=== PATIENT | female | born 1995 | race Caucasian/White ===

== ENCOUNTER 2020-03-11 19:08 | Emergency (ER) | payer MEDICAID ==
[2020-03-11] MEDS ORDERED: Sodium Chloride 0.9% 2.5 ML Syringe FLUSH PRN (19:22)
[2020-03-11] MEDS ORDERED: Sodium Chloride 0.9% 10 ML Syringe FLUSH PRN (19:22)
[2020-03-11] MEDS ORDERED: Sodium Chloride 0.9% 1,000 ML IV ONE ×2 (19:35→20:59)
[2020-03-11] MEDS ORDERED: LORazepam 2 MG/ML SDV IVPUSH ONE (19:38)
--- NOTE | 2020-03-11 19:55 | CR ---
Chest: Frontal view of the chest was obtained. Comparison: No previous chest imaging is available. Heart size and mediastinum are normal. Lungs are clear with no acute parenchymal change. Bony structures are grossly intact. Minimal deformity of the right clavicle is seen most likely representing old healed fracture. Impression: 1. Nothing acute is seen on frontal chest x-ray. Diagnostic code #2 Study was dictated in MDT
[2020-03-11 20:04] LABS: BLOOD UREA NITROGEN,BUN 9 mg/dL (7.0-18.0); CARBON DIOXIDE,CO2 24.2 mmol/L (21.0-32.0); CHLORIDE,CL 102 mmol/L (98-107); GLUCOSE RANDOM 119 mg/dL (74-106); POTASSIUM,K 2.7 mmol/L (3.5-5.1); SODIUM,NA 138 mmol/L (136-145)
[2020-03-11] MEDS ORDERED: Iopamidol 755 MG/ML 500 ML Multipack Bottle IVPUSH STA (20:26)
[2020-03-11] MEDS ORDERED: Ondansetron 4 MG/2 ML SDV IVPUSH ONE (20:52)
[2020-03-11] MEDS ORDERED: Ketorolac 15 MG/ML SDV IVPUSH ONE (20:52)
[2020-03-11] MEDS: Potassium Chloride 10% 20 MEQ/15 ML Soln 30 ML UD Cup PO ONE ×2 (20:59→21:24)
--- NOTE | 2020-03-11 21:02 | CT ---
INDICATION: ABD/PELVIC PAIN CT ABDOMEN AND PELVIS WITH CONTRAST TECHNIQUE: Multidetector CT imaging was performed through the abdomen and pelvis following intravenous contrast administration using 80 mL Isovue 370. Coronal and sagittal reconstructions were generated. COMPARISON: None. FINDINGS: Lower chest: Lung bases are clear. Liver: Within normal limits. Gallbladder and bile ducts: No gallbladder wall thickening or calcified gallstones. No biliary dilation identified. Pancreas: Unremarkable. Spleen: Normal. Adrenals: No nodules or masses. Kidneys, ureters, and urinary bladder: No renal masses or hydronephrosis. Mild prominence of wall thickness of the bladder may be due to lack of distention, although cystitis could be considered. Gastrointestinal tract: No evidence of small bowel obstruction. The appendix appears normal. Mild wall prominence of the ascending colon and descending colon is favored to be due to lack of distention although mild colitis is not entirely excluded. Vascular structures: Normal for age. Peritoneum: Trace free fluid in the low pelvis may be physiologic. No free air or evidence of intra-abdominal abscess. Lymph nodes: No pathologically enlarged nodes identified. Reproductive organs: No pelvic masses. Bones: Normal for age. IMPRESSION: 1. Mild urinary bladder wall prominence, possibly due to cystitis. Correlation with urinalysis is suggested. 2. Mild wall prominence of the colon is likely due to lack of distension, although mild colitis is not entirely excluded. Clinical correlation is suggested. GUILLAUME COREY MD [facility] Dictated by Duran Corey MD @ 03/11/2020 8:59:54 PM Dictated by: Duran Corey MD @ 03/11/2020 21:00:58 (Electronically Signed)
[2020-03-11] MEDS ORDERED: Potassium Chloride 20 MEQ Tab.ER PO ONE (21:24)
[2020-03-11] MEDS ORDERED: HYDROmorphone 1 MG/ML Syringe IVPUSH ONE (21:55)
--- NOTE | 2020-03-11 22:17 | EDM.PDOC ---
ED HPI GENERAL MEDICAL PROBLEM - General Chief Complaint: Abdominal Pain Stated Complaint: LOWER PELVIC PAIN Time Seen by Provider: 03/11/20 19:11 - History of Present Illness INITIAL COMMENTS - FREE TEXT/NARRATIVE: HISTORY AND PHYSICAL: History of present illness: This is a 24-year-old female who presents ER today complaining of suprapubic abdominal pain that started approximately 1 day. Patient reports no dysuria frequency urgency. Patient denies any vaginal discharge or bleeding. Patient denies any nausea vomiting or diarrhea. Patient has any recent fevers, shakes, chills, URI symptoms, sore throat, earache, rash. Patient reports that she has had tachycardia with a heart rate in the 1 20-1 50 range ever since she was 10 to 11 years old and has been evaluated by federal agent and was planning further outpatient tests before she moved to [place]. Patient reports that she has had an EKG but has never had a stress test, echocardiogram, or tilt test. Patient has never been diagnosed with pots syndrome in the past. Patient reports that her thyroid is been normal. Patient reports that she has never been told she had a pheochromocytoma or family history of pheochromocytoma. Patient reports that her blood pressure usually runs high as well. Patient reports it is not uncommon for her to have a heart rate of 140 with a systolic blood pressure of 150 and diastolic blood pressure of 90. At this time, the patient reports her main complaint is her suprapubic discomfort. Patient reports that she has had ovarian cysts in the past and this feels similar to her ovarian cyst pain. Review of systems: As per history of present illness and below otherwise all systems reviewed and negative. Past medical history: As per history of present illness and as reviewed below otherwise noncontributory. Surgical history: As per history of present illness and as reviewed below otherwise noncontributory. Social history: No reported history of drug or alcohol abuse. Family history: As per history of present illness and as reviewed below otherwise noncontributory. Physical exam: Constitutional: Patient is oriented to person, place, and time. Appears well- developed and well-nourished. No distress. HEENT: Moist mucous membranes Head: Normocephalic and atraumatic Eyes: Right eye exhibits no discharge. Left eye exhibits no discharge. No scleral icterus Neck: Normal range of motion. No tracheal deviation present. Cardiovascular: Tachycardic normal rhythm. Heart rate fluctuates between 120 bpm and 150 bpm and appears to be sinus tachycardia on the monitor. No appreciable gallops murmurs or rubs. With carotid sinus massage, no significant change in her heart was identified. Pulmonary: Effort normal, no respiratory distress. Abd: Soft, nondistended, no rebound/guarding, no psoas or obturator signs, no tenderness at Mcberney's point, no Pizarro's sign. Pt does not present with an exam that would be consistent with an acute surgical abdomen at this time. Positive tenderness palpation in the suprapubic region. Musculoskeletal: Normal range of motion Neurologic: Alert and oriented to person, place and time. Skin: [place], warm and dry. Psychiatric: Normal mood and affect. Behavior is normal. Judgment and thought content normal. Nursing note and vital signs have been reviewed Multiple repeat evaluations in the ED reveals patient is abdominal pain has improved slightly. Patient has been given Toradol 30 mg IV as well as Dilaudid 0.5 mg IV and Zofran to assist with her nausea. 9:45 PM: Abd: Soft, nondistended, no rebound/guarding, no psoas or obturator signs, no tenderness at Mcberney's point, no Pizarro's sign. Pt does not present with an exam that would be consistent with an acute surgical abdomen at this time. Minimal tenderness to palpation suprapubic region. Heart rate 115 bpm to 130 bpm. Assessment and plan: This is a 24-year-old female who presents ER today complaining of suprapubic abdominal pain. Patient reports that she has been tachycardic ever since she was 12-13 years old. Patient reports that her last physician that saw her felt her tachycardia may be related to anxiety. Patient reports she does feel anxious today but it is not clear whether or not her anxiety is related to her abdominal pain. Patient reports that her heart rate is always greater than 100 and usually runs in the 130 range. Given her abdominal discomfort, her tachycardia, hypertension, possibility of pheochromocytoma arises. We will send a serum metanephrine level. Although this is a random level, if it is within normal range it would be unlikely that she would have a pheochromocytoma since she is currently symptomatic. A CT scan of the abdomen pelvis with IV contrast will also be obtained in order to assess her abdominal discomfort as well as assess for any masses in her adrenals. Patient's labs are all within normal limits except for hypokalemia which will be treated here in the ED with potassium chloride. Patient has been given Toradol, Zofran, Dilaudid 0.5 mg IV as well as 2 L of normal saline with significant improvement in her tachycardia. But still not clear the cause of her tachycardia but it has improved with treatment of her pain. Her blood pressure is also improved on the ED. Since the serum metanephrine level is a send out, the result will not be back for approximately 1 week. Patient will be instructed to call the ER in 1 week for her metanephrine level. As far as her abdominal discomfort, the etiology of the pain is unclear. I highly suspect that this may be secondary to ovarian cyst. Patient CT scan did not reveal any concerning symptoms for ovarian torsion and her exam does not appear to be consistent with ovarian torsion either. Patient be discharged home with a prescription of ibuprofen and Ultram to assist her with her pain and instructions to follow-up with a primary care physician in order to assist her further with her chronic tachycardia as well as her abdominal pain. Reassessment at the time of disposition demonstrates that the patient is in no acute distress. The patient has remained stable throughout the entire ED visit and is without objective evidence for acute process requiring urgent intervention or hospitalization. The patient is stable for discharge, counseling is provided as documented above, discussed symptomatic treatment and specific conditions for return. I have spoken with the patient/caregive and discussed todays findings, in addition to providing specific details for the plan of care. Questions are answered and there is agreement with the plan. Definitive disposition and diagnosis as appropriate pending reevaluation and review of above. Lower abdomen Pain Score (Numeric/FACES): 6 - Related Data Allergies Allergy/AdvReac Type Severity Reaction Status Date / Time No Known Allergies Allergy Verified 03/11/20 19:29 Home Meds: Home Meds Control 1 tab PO DAILY 03/11/20 [History] Ibuprofen 600 mg PO Q6HR PRN #30 tablet 03/11/20 [Rx] Ondansetron [Zofran ODT] 4 mg PO Q6H PRN #12 tab.dis 03/11/20 [Rx] traMADol [Ultram] 50 mg PO Q6H PRN #12 tab 03/11/20 [Rx] Past Medical History HEENT History: Reports: None Cardiovascular History: Reports: None Respiratory History: Reports: None Gastrointestinal History: Reports: None Genitourinary History: Reports: None TENDERIZER TENDER History: Reports: Endometriosis Musculoskeletal History: Reports: None Neurological History: Reports: None Psychiatric History: Reports: None Endocrine/Metabolic History: Reports: None Hematologic History: Reports: None Immunologic History: Reports: None Oncologic (Cancer) History: Reports: None Dermatologic History: Reports: None - Infectious Disease History Infectious Disease History: Reports: None - Past Surgical History Head Surgeries/Procedures: Reports: None HEENT Surgical History: Reports: Adenoidectomy, Oral Surgery, Tonsillectomy Cardiovascular Surgical History: Reports: None Respiratory Surgical History: Reports: None GI Surgical History: Reports: None Female Surgical History: Reports: Other (See Below) Endocrine Surgical History: Reports: None Musculoskeletal Surgical History: Reports: None Oncologic Surgical History: Reports: None Dermatological Surgical History: Reports: None Social & Family History - Family History Family Medical History: Noncontributory - Tobacco Use Smoking Status *Q: Never Smoker Second Hand Smoke Exposure: No - Caffeine Use Caffeine Use: Reports: Coffee, Soda - Recreational Drug Use Recreational Drug Use: Yes Recreational Drug Type: Reports: Marijuana/Hashish Recreational Drug Use Frequency: Daily ED ROS GENERAL - Review of Systems Review Of Systems: Comprehensive ROS is negative, except as noted in HPI. ED EXAM, GENERAL - Physical Exam Exam: See Below EKG INTERPRETATION Comparison: NA - No Prior EKG EKG Interpretation Comments: EKG: Normal sinus tachycardia heart rate of [address]-T wave abnormalities Normal axis No evidence of ST elevation IA As interpreted by ER physician: Liza Chest Xray: Normal cardiac silhouette No infiltrates or effusions identified. No PTX No evidence of acute bony fracture. As interpreted by ER MD: Liza Course - Vital Signs Last Recorded V/S: Last Vital Signs Temp 98.1 F 03/11/20 19:26 Pulse 115 H 03/11/20 21:43 Resp 18 03/11/20 21:43 BP 145/81 H 03/11/20 21:43 Pulse Ox 99 03/11/20 21:09 - Orders/Labs/Meds Orders: Active Orders 24 hr Category Date Time Status EKG Documentation Completion [RC] STAT Care 03/11/20 19:22 Active METANEPHRINES, FRAC., PL. FREE [REF] Stat Lab 03/11/20 19:55 Received Sodium Chloride 0.9% [Saline Flush] Med 03/11/20 19:22 Active 10 ml FLUSH ASDIRECTED PRN Sodium Chloride 0.9% [Saline Flush] Med 03/11/20 19:22 Active 2.5 ml FLUSH ASDIRECTED PRN Saline Lock Insert [OM.PC] Stat Oth 03/11/20 19:22 Ordered Medication Orders Sodium Chloride (Saline Flush) 10 ml FLUSH ASDIRECTED PRN PRN Reason: Keep Vein Open Sodium Chloride (Saline Flush) 2.5 ml FLUSH ASDIRECTED PRN PRN Reason: Keep Vein Open Labs: Laboratory Tests 03/11/20 03/11/20 03/11/20 Range/Units 19:30 19:30 19:30 WBC 8.87 (4.0-11.0) K/uL RBC 4.64 (4.30-5.90) M/uL Hgb 14.0 (12.0-16.0) g/dL Hct 40.4 (36.0-46.0) % MCV 87.1 (80.0-98.0) fL MCH 30.2 (27.0-32.0) pg MCHC 34.7 (31.0-37.0) g/dL RDW Std Deviation 40.1 (28.0-62.0) fl RDW Coeff of Bret 13 (11.0-15.0) % Plt Count 241 (150-400) K/uL MPV 12.00 (7.40-12.00) fL Neut % (Auto) 48.4 (48.0-80.0) % Lymph % (Auto) 39.0 (16.0-40.0) % [place] % (Auto) 10.3 (0.0-15.0) % Eos % (Auto) 2.0 (0.0-7.0) % Baso % (Auto) 0.3 (0.0-1.5) % Neut # (Auto) 4.3 (1.4-5.7) K/uL Lymph # (Auto) 3.5 H (0.6-2.4) K/uL [place] # (Auto) 0.9 H (0.0-0.8) K/uL Eos # (Auto) 0.2 (0.0-0.7) K/uL Baso # (Auto) 0.0 (0.0-0.1) K/uL Sodium 138 (136-145) mmol/L Potassium 2.7 L (3.5-5.1) mmol/L Chloride 102 (98-107) mmol/L Carbon Dioxide 24.2 (21.0-32.0) mmol/L BUN 9 (7.0-18.0) mg/dL Creatinine 1.0 (0.6-1.0) mg/dL Est Cr Clr Drug Dosing 79.81 mL/min Estimated GFR (MDRD) > 60.0 ml/min Glucose 119 H (74-106) mg/dL Calcium 8.6 (8.5-10.1) mg/dL Magnesium 1.9 (1.8-2.4) mg/dL Total Bilirubin 0.3 (0.2-1.0) mg/dL AST 16 (15-37) IU/L ALT 16 (14-63) IU/L Alkaline Phosphatase 74 (46-116) U/L Total Protein 7.6 (6.4-8.2) g/dL Albumin 4.6 (3.4-5.0) g/dL Globulin 3.0 (2.6-4.0) g/dL Albumin/Globulin Ratio 1.5 (0.9-1.6) TSH 3rd Generation 6.13 H (0.36-3.74) uIU/mL HCG, Qual NEGATIVE (NEG) Urine Color Urine Appearance Urine pH (5.0-8.0) Ur Specific [place] (1.001-1.035) Urine Protein (NEGATIVE) mg/dL Urine Glucose (UA) (NEGATIVE) mg/dL Urine Ketones (NEGATIVE) mg/dL Urine Occult Blood (NEGATIVE) Urine Nitrite (NEGATIVE) Urine Bilirubin (NEGATIVE) Urine Urobilinogen (<2.0) EU/dL Ur Leukocyte Esterase (NEGATIVE) Urine Opiates Screen (NEGATIVE) Ur Oxycodone Screen (NEGATIVE) Urine Methadone Screen (NEGATIVE) Ur Barbiturates Screen (NEGATIVE) Ur Phencyclidine Scrn (NEGATIVE) Ur Amphetamine Screen (NEGATIVE) U Methamphetamines Scrn (NEGATIVE) U Benzodiazepines Scrn (NEGATIVE) U Cocaine Metab Screen (NEGATIVE) U Marijuana (THC) Screen (NEGATIVE) 03/11/20 03/11/20 Range/Units 19:57 19:57 WBC (4.0-11.0) K/uL RBC (4.30-5.90) M/uL Hgb (12.0-16.0) g/dL Hct (36.0-46.0) % MCV (80.0-98.0) fL MCH (27.0-32.0) pg MCHC (31.0-37.0) g/dL RDW Std Deviation (28.0-62.0) fl RDW Coeff of Bret (11.0-15.0) % Plt Count (150-400) K/uL MPV (7.40-12.00) fL Neut % (Auto) (48.0-80.0) % Lymph % (Auto) (16.0-40.0) % [place] % (Auto) (0.0-15.0) % Eos % (Auto) (0.0-7.0) % Baso % (Auto) (0.0-1.5) % Neut # (Auto) (1.4-5.7) K/uL Lymph # (Auto) (0.6-2.4) K/uL [place] # (Auto) (0.0-0.8) K/uL Eos # (Auto) (0.0-0.7) K/uL Baso # (Auto) (0.0-0.1) K/uL Sodium (136-145) mmol/L Potassium (3.5-5.1) mmol/L Chloride (98-107) mmol/L Carbon Dioxide (21.0-32.0) mmol/L BUN (7.0-18.0) mg/dL Creatinine (0.6-1.0) mg/dL Est Cr Clr Drug Dosing mL/min Estimated GFR (MDRD) ml/min Glucose (74-106) mg/dL Calcium (8.5-10.1) mg/dL Magnesium (1.8-2.4) mg/dL Total Bilirubin (0.2-1.0) mg/dL AST (15-37) IU/L ALT (14-63) IU/L Alkaline Phosphatase (46-116) U/L Total Protein (6.4-8.2) g/dL Albumin (3.4-5.0) g/dL Globulin (2.6-4.0) g/dL Albumin/Globulin Ratio (0.9-1.6) TSH 3rd Generation (0.36-3.74) uIU/mL HCG, Qual (NEG) Urine Color YELLOW Urine Appearance CLEAR Urine pH 5.5 (5.0-8.0) Ur Specific [place] 1.010 (1.001-1.035) Urine Protein NEGATIVE (NEGATIVE) mg/dL Urine Glucose (UA) NEGATIVE (NEGATIVE) mg/dL Urine Ketones NEGATIVE (NEGATIVE) mg/dL Urine Occult Blood NEGATIVE (NEGATIVE) Urine Nitrite NEGATIVE (NEGATIVE) Urine Bilirubin NEGATIVE (NEGATIVE) Urine Urobilinogen 0.2 (<2.0) EU/dL Ur Leukocyte Esterase NEGATIVE (NEGATIVE) Urine Opiates Screen NEGATIVE (NEGATIVE) Ur Oxycodone Screen NEGATIVE (NEGATIVE) Urine Methadone Screen NEGATIVE (NEGATIVE) Ur Barbiturates Screen NEGATIVE (NEGATIVE) Ur Phencyclidine Scrn NEGATIVE (NEGATIVE) Ur Amphetamine Screen NEGATIVE (NEGATIVE) U Methamphetamines Scrn NEGATIVE (NEGATIVE) U Benzodiazepines Scrn NEGATIVE (NEGATIVE) U Cocaine Metab Screen NEGATIVE (NEGATIVE) U Marijuana (THC) Screen POSITIVE (NEGATIVE) Meds: Medications Generic Name Dose Route Start Last Admin Trade Name Freq PRN Reason Stop Dose Admin Sodium Chloride 10 ml 03/11/20 19:22 Saline Flush FLUSH ASDIRECTED PRN Keep Vein Open Sodium Chloride 2.5 ml 03/11/20 19:22 Saline Flush FLUSH ASDIRECTED PRN Keep Vein Open Discontinued Medications Generic Name Dose Route Start Last Admin Trade Name Freq PRN Reason Stop Dose Admin Hydromorphone HCl 0.5 mg 03/11/20 21:55 03/11/20 22:02 Dilaudid IVPUSH 03/11/20 21:56 0.5 mg ONETIME ONE Administration Sodium Chloride 1,000 mls @ 999 mls/hr 03/11/20 19:35 03/11/20 19:44 Normal Saline IV 03/11/20 20:35 999 mls/hr .Bolus ONE Administration Sodium Chloride 1,000 mls @ 999 mls/hr 03/11/20 20:59 03/11/20 21:07 Normal Saline IV 03/11/20 21:59 999 mls/hr .Bolus ONE Administration Iopamidol 80 ml 03/11/20 20:26 03/11/20 20:32 Isovue Multipack-370 (76%) IVPUSH 03/11/20 20:27 80 ml ONETIME STA Administration Ketorolac Tromethamine 30 mg 03/11/20 20:52 03/11/20 20:59 Toradol IVPUSH 03/11/20 20:53 30 mg ONETIME ONE Administration Lorazepam 1 mg 03/11/20 19:38 03/11/20 19:43 Ativan IVPUSH 03/11/20 19:39 1 mg ONETIME ONE Administration Ondansetron HCl 4 mg 03/11/20 20:52 03/11/20 20:59 Zofran IVPUSH 03/11/20 20:53 4 mg ONETIME ONE Administration Potassium Chloride 40 meq 03/11/20 20:54 03/11/20 21:24 Potassium Chloride PO 03/11/20 20:55 Not Given ONETIME ONE Potassium Chloride 40 meq 03/11/20 21:24 03/11/20 21:41 Klor-Con M20 PO 03/11/20 21:25 40 meq ONETIME ONE Administration Departure - Departure Time of Disposition: 22:17 Disposition: Home, Self-Care 01 Condition: Good Clinical Impression: Abdominal pain, Tachycardia - Discharge Information Prescriptions: Ibuprofen 600 mg PO Q6HR PRN #30 tablet PRN Reason: Pain traMADol [Ultram] 50 mg PO Q6H PRN #12 tab PRN Reason: Pain Ondansetron [Zofran ODT] 4 mg PO Q6H PRN #12 tab.dis PRN Reason: Nausea Instructions: Sinus Tachycardia, Abdominal Pain, Adult, [id number] Referrals: PCP,None [Primary Care Provider] - Forms: ED Department Discharge Additional Instructions: The etiology of your abdominal pain is unclear although we highly suspect that it may be secondary to an ovarian cyst. You will be given a prescription for ibuprofen as well as Ultram to assist you with your pain and a prescription for Zofran to assist you with nausea. Please make an appointment to follow-up with the primary care physician for reevaluation. The etiology of your tachycardia is also unclear. There are multiple reasons for you to have chronic tachycardia that will need to be evaluated further by a federal agent. Your tachycardia appears to be a result of sinus tachycardia which is a normal heart rhythm. You do not have any evidence of a supraventricular tachycardia. Please make an appointment to see a federal agent for further evaluation. The following information is given to patients seen in the emergency department who are being discharged to home. This information is to outline your options for follow-up care. We provide all patients seen in our emergency department with a follow-up referral. The need for follow-up, as well as the timing and circumstances, are variable depending upon the specifics of your emergency department visit. If you don't have a primary care physician on staff, we will provide you with a referral. We always advise you to contact your personal physician following an emergency department visit to inform them of the circumstance of the visit and for follow-up with them and/or the need for any referrals to a consulting specialist. The emergency department will also refer you to a specialist when appropriate. This referral assures that you have the opportunity for follow-up care with a specialist. All of these measure are taken in an effort to provide you with optimal care, which includes your follow-up. Under all circumstances we always encourage you to contact your private physician who remains a resource for coordinating your care. When calling for follow-up care, please make the office aware that this follow-up is from your recent emergency room visit. If for any reason you are refused follow-up, please contact the [facility] Emergency Department at and asked to speak to the emergency department charge nurse. [facility] - Internal Medicine [address] [place] [address] [facility] [address] [place] [id number] [place] [phone] We have also sent out a test to rule out pheochromocytoma. This test needs to be sent out of the hospital and takes approximately 1 week to return. Although we should call you if the test results are abnormal, please call the emergency department after 1 week for your test results. [phone] Sepsis Event Note (ED) - Evaluation Sepsis Screening Result: No Definite Risk - Focused Exam Vital Signs: Vital Signs Temp Pulse Resp BP Pulse Ox 03/11/20 21:43 115 H 18 145/81 H 03/11/20 21:09 94 155/82 H 99 03/11/20 20:50 136 H 151/89 H 100 03/11/20 19:40 133 H 18 165/84 H 100 03/11/20 19:26 98.1 F 169 H 18 153/97 H 99 - My Orders Last 24 Hours: My Active Orders 03/11/20 19:55 METANEPHRINES, FRAC., PL. FREE [REF] Stat - Assessment/Plan Last 24 Hours: My Active Orders 03/11/20 19:55 METANEPHRINES, FRAC., PL. FREE [REF] Stat
== END 2020-03-11 22:37 | disposition home or self-care (01) ==
LOC: MW.ED 19:08
DX: R10.30 Lower abdominal pain, unspecified (principal); R00.0 Tachycardia, unspecified; Z90.89 Acquired absence of other organs
CPT/HCPCS: 36415; 71045; 74177; 80053; 80305; 81003; 83735; 83835; 84443; 84703; 85025; 93005; 96374; 96375; 99285; A9270; J1170; J1885; J2060; J2405; J7030; Q9967

== ENCOUNTER 2021-09-29 00:55 | Emergency (ER) | payer MEDICAID ==
[2021-09-29] MEDS: Morphine 4 MG/ML VIAL IVPUSH ONE ×2 (01:26→02:20)
[2021-09-29] MEDS: Sodium Chloride 0.9% 1,000 ML IV ONE (01:26)
[2021-09-29] MEDS: Ondansetron 4 MG/2 ML SDV IVPUSH ONE (01:26)
[2021-09-29] MEDS: Methylergonovine 0.2 MG/1 ML Amp IM STA (02:03)
[2021-09-29 02:10] LABS: BLOOD UREA NITROGEN,BUN 9 mg/dL (7.0-18.0); CARBON DIOXIDE,CO2 27.3 mmol/L (21.0-32.0); CHLORIDE,CL 102 mmol/L (98-107); GLUCOSE RANDOM 109 mg/dL (74-106); POTASSIUM,K 3.5 mmol/L (3.5-5.1); SODIUM,NA 141 mmol/L (136-145)
== END 2021-09-29 02:46 | disposition home or self-care (01) ==
LOC: MW.ED 00:55
DX: O20.9 Hemorrhage in early pregnancy, unspecified (principal); Z3A.01 Less than 8 weeks gestation of pregnancy
CPT/HCPCS: 36415; 80053; 84702; 85025; 96372; 96374; 96375; 96376; 99284; J2210; J2270; J2405; J7030; 99283

== ENCOUNTER 2021-10-03 23:40 | Emergency (ER) | payer MEDICAID ==
[2021-10-03] MEDS ORDERED: Lactated Ringers 1,000 ML IV ONE (23:51)
[2021-10-03] MEDS ORDERED: Morphine 4 MG/ML VIAL IVPUSH ONE (23:53)
[2021-10-04 00:39] LABS: BLOOD UREA NITROGEN,BUN 9 mg/dL (7.0-18.0); CARBON DIOXIDE,CO2 26.7 mmol/L (21.0-32.0); CHLORIDE,CL 100 mmol/L (98-107); GLUCOSE RANDOM 115 mg/dL (74-106); POTASSIUM,K 3.4 mmol/L (3.5-5.1); SODIUM,NA 141 mmol/L (136-145)
[2021-10-04] MEDS ORDERED: cefTRIAXone 1 GM in Sodium Chloride 0.9% 50 ML IV ONE (01:24)
[2021-10-04] MEDS ORDERED: Methylergonovine 0.2 MG/1 ML Amp IM STA (01:27)
[2021-10-04] MEDS ORDERED: Acetaminophen/HYDROcodone 325-5 MG Tab PO ONE (01:28)
[2021-10-04] MEDS ORDERED: Ondansetron 4 MG/2 ML SDV IVPUSH ONE (01:38)
[2021-10-04] MEDS ORDERED: Promethazine 25 MG Tab PO STA (02:04)
== END 2021-10-04 02:39 | disposition home or self-care (01) ==
LOC: MW.ED 23:40
DX: O03.30 Unspecified complication following incomplete spontaneous abortion (principal); R10.2 Pelvic and perineal pain
CPT/HCPCS: 36415; 76830; 80053; 81003; 83605; 83735; 84702; 85025; 85610; 87040; 93005; 96372; 96374; 96375; 99284; A9270; J0696; J2210; J2270; J2405; J7120; 93010

== ENCOUNTER 2021-10-07 06:42 | Day surgery (SDC) | payer MEDICAID ==
[~2021-10-07 06:42] MED LIST: Albuterol 0.083% 2.5 MG/3 ML Neb Soln NEB PRN; HYDROmorphone 1 MG/ML Syringe IVPUSH PRN; Metoclopramide 10 MG/2 ML SDV IVPUSH PRN; Morphine 4 MG/ML VIAL IVPUSH PRN; Naloxone 0.4 MG/ML SDV IVPUSH PRN; Ondansetron 4 MG/2 ML SDV IVPUSH PRN
[2021-10-07] MEDS ORDERED: Propofol 200 MG/20 ML SDV ONE (07:18)
[2021-10-07] MEDS ORDERED: Dexmedetomidine 200 MCG/2 ML SDV ONE (07:18)
[2021-10-07] MEDS ORDERED: fentaNYL 100 MCG/2 ML SDV ONE ×2 (07:18→08:27)
[2021-10-07] MEDS ORDERED: Ondansetron 4 MG/2 ML SDV ONE (07:18)
[2021-10-07] MEDS ORDERED: Dexamethasone 4 MG/ML 5 ML MDV ONE (07:18)
[2021-10-07] MEDS ORDERED: Midazolam 1 MG/ML 2 ML SDV ONE ×2 (07:18→08:04)
[2021-10-07] MEDS ORDERED: Scopolamine 1.5 MG Transdermal Patch ONE (07:20)
[2021-10-07] MEDS ORDERED: Albuterol 0.083% 2.5 MG/3 ML Neb Soln NEB PRN (07:35)
[2021-10-07] MEDS ORDERED: fentaNYL 100 MCG/2 ML SDV IVPUSH PRN (07:35)
[2021-10-07] MEDS ORDERED: Ondansetron 4 MG/2 ML SDV IVPUSH PRN (07:35)
[2021-10-07] MEDS ORDERED: Metoclopramide 10 MG/2 ML SDV IVPUSH PRN (07:35)
[2021-10-07] MEDS ORDERED: HYDROmorphone 1 MG/ML Syringe IVPUSH PRN (07:35)
[2021-10-07] MEDS ORDERED: Naloxone 0.4 MG/ML SDV IVPUSH PRN (07:35)
[2021-10-07] MEDS ORDERED: Morphine 4 MG/ML VIAL IVPUSH PRN (07:35)
[2021-10-07 07:53] LABS: BLOOD UREA NITROGEN,BUN 10 mg/dL (7.0-18.0); CARBON DIOXIDE,CO2 25.8 mmol/L (21.0-32.0); CHLORIDE,CL 103 mmol/L (98-107); GLUCOSE RANDOM 100 mg/dL (74-106); POTASSIUM,K 3.7 mmol/L (3.5-5.1); SODIUM,NA 140 mmol/L (136-145)
[2021-10-07] MEDS ORDERED: Doxycycline 200 MG in Dextrose 5% in Water 250 ML IV SCH ×2 (08:15)
[2021-10-07] MEDS ORDERED: Ketorolac 30 MG/ML SDV ONE (08:19)
[2021-10-07] MEDS: fentaNYL 100 MCG/2 ML SDV IVPUSH PRN ×2 (09:01→09:07)
[2021-10-07] MEDS ORDERED: Acetaminophen/HYDROcodone 325-5 MG Tab PO PRN (10:39)
== END 2021-10-07 10:56 | disposition home or self-care (01) ==
LOC: MW.SDS 06:42
PROVIDERS: ATTEND Obstetrics & Gynecology
DX: O03.4 Incomplete spontaneous abortion without complication (principal); O73.1 Retained portions of placenta and membranes, without hemorrhage; N80.9 Endometriosis, unspecified; Z90.89 Acquired absence of other organs; Z98.890 Other specified postprocedural states; Z79.899 Other long term (current) drug therapy
CPT/HCPCS: 36415; 59812; 80053; 85025; J0131; J1100; J1885; J2250; J2405; J2704; J3010; 01965

== ENCOUNTER 2021-10-07 23:10 | Emergency (ER) | payer MEDICAID ==
[2021-10-08] MEDS ORDERED: Sodium Chloride 0.9% 1,000 ML IV ONE (00:31)
[2021-10-08] MEDS ORDERED: Sodium Chloride 0.9% 10 ML Syringe FLUSH PRN (00:31)
[2021-10-08] MEDS ORDERED: Ketorolac 30 MG/ML SDV IVPUSH ONE (00:31)
[2021-10-08] MEDS ORDERED: fentaNYL 50 MCG/ML SDV IVPUSH ONE (00:31)
[2021-10-08] MEDS ORDERED: Sodium Chloride 0.9% 2.5 ML Syringe FLUSH PRN (00:31)
[2021-10-08] MEDS ORDERED: Ondansetron 4 MG/2 ML SDV IVPUSH ONE (00:31)
[2021-10-08 01:24] LABS: BLOOD UREA NITROGEN,BUN 10 mg/dL (7.0-18.0); CHLORIDE,CL 103 mmol/L (98-107); GLUCOSE RANDOM 106 mg/dL (74-106); POTASSIUM,K 3.6 mmol/L (3.5-5.1); SODIUM,NA 139 mmol/L (136-145)
[2021-10-08] MEDS ORDERED: cefTRIAXone 2 GM in Premix Bag 1 BAG IV ONE (01:42)
[2021-10-08] MEDS ORDERED: Iopamidol 755 MG/ML 500 ML Multipack Bottle IVPUSH STA (02:20)
== END 2021-10-08 03:26 | disposition home or self-care (01) ==
LOC: MW.ED 23:10
DX: R10.30 Lower abdominal pain, unspecified (principal); G89.18 Other acute postprocedural pain
CPT/HCPCS: 36415; 74177; 80053; 81001; 84702; 85025; 96365; 96375; 99284; J0696; J1885; J2405; J3010; J7030; Q9967; 99283

== ENCOUNTER 2022-02-11 13:17 | Emergency (ER) | payer MEDICAID ==
[2022-02-11] MEDS ORDERED: Morphine 4 MG/ML VIAL IVPUSH ONE (13:48)
[2022-02-11] MEDS ORDERED: Sodium Chloride 0.9% 1,000 ML IV ONE (13:48)
[2022-02-11] MEDS ORDERED: Ondansetron 4 MG/2 ML SDV IVPUSH ONE (13:48)
[2022-02-11 14:47] LABS: BLOOD UREA NITROGEN,BUN 10 mg/dL (7.0-18.0); CARBON DIOXIDE,CO2 25.6 mmol/L (21.0-32.0); CHLORIDE,CL 105 mmol/L (98-107); GLUCOSE RANDOM 86 mg/dL (74-106); SODIUM,NA 140 mmol/L (136-145)
[2022-02-11 14:48] LABS: ESTIMATED GFR 89 mL/min (>60)
== END 2022-02-11 15:58 | disposition home or self-care (01) ==
LOC: MW.ED 13:17
DX: N80.9 Endometriosis, unspecified (principal); Z79.899 Other long term (current) drug therapy
CPT/HCPCS: 36415; 76857; 80053; 84702; 85025; 96374; 96375; 99284; J2270; J2405; J7030

== ENCOUNTER 2022-07-25 20:59 | Emergency (ER) | payer BC, MEDICAID | END 2022-07-26 00:07 | disposition home or self-care (01) | LOC: MW.ED 20:59 | DX: H10.9 Unspecified conjunctivitis (principal) | CPT/HCPCS: 99282 ==

== ENCOUNTER 2022-08-01 03:36 | Emergency (ER) | payer BC ==
[2022-08-01] MEDS ORDERED: Azithromycin 250 MG Tab PO ONE (03:56)
[2022-08-01] MEDS ORDERED: Ibuprofen 600 MG Tab PO ONE (03:56)
[2022-08-01] MEDS ORDERED: traMADol 50 MG Tab PO ONE (03:56)
== END 2022-08-01 04:04 | disposition home or self-care (01) ==
LOC: MW.ED 03:36
DX: H10.9 Unspecified conjunctivitis (principal); H66.91 Otitis media, unspecified, right ear; Z79.899 Other long term (current) drug therapy; Z86.16 Personal history of COVID-19
CPT/HCPCS: 99282; A9270

== ENCOUNTER 2023-04-11 09:47 | Emergency (ER) | payer BC ==
[2023-04-11] MEDS ORDERED: Sodium Chloride 0.9% 10 ML Syringe FLUSH PRN (10:05)
[2023-04-11] MEDS ORDERED: Sodium Chloride 0.9% 2.5 ML Syringe FLUSH PRN (10:05)
[2023-04-11] MEDS ORDERED: Sodium Chloride 0.9% 1,000 ML IV STA (10:06)
[2023-04-11 10:13] LABS: BASOPHILS PERCENT AUTO 0.3 % (0.0-1.5); EOSINOPHILS ABSOLUTE AUTO 0.1 K/uL (0.0-0.7); EOSINOPHILS PERCENT AUTO 1.6 % (0.0-7.0); HEMATOCRIT 42.6 % (36.0-46.0); LYMPHOCYTES ABSOLUTE AUTO 0.9 K/uL (0.6-2.4); LYMPHOCYTES PERCENT AUTO 23.8 % (16.0-40.0); MEAN CORPUSCULAR HEMOGLOBIN 31.1 pg (27.0-32.0); MEAN CORPUSCULAR HGB CONC 35.2 g/dL (31.0-37.0); MEAN CORPUSCULAR VOLUME 88.2 fL (80.0-98.0); MONOCYTES ABSOLUTE AUTO 0.5 K/uL (0.0-0.8); MONOCYTES PERCENT AUTO 12.7 % (0.0-15.0); NEUTROPHILS ABSOLUTE AUTO 2.3 K/uL (1.4-5.7); NEUTROPHILS PERCENT AUTO 61.6 % (48.0-80.0); PLATELET COUNT,PLT 171 K/uL (150-400); RED BLOOD CELL COUNT 4.83 M/uL (4.30-5.90); WHITE BLOOD CELL COUNT,WBC 3.78 K/uL (4.0-11.0)
[2023-04-11] MEDS ORDERED: Ketorolac 30 MG/ML SDV IVPUSH STA (10:16)
[2023-04-11 10:33] LABS: APPEARANCE,URINE CLEAR; BILIRUBIN,URINE NEGATIVE (NEGATIVE); COLOR,URINE YELLOW; GLUCOSE,URINE NEGATIVE (NEGATIVE); KETONES,URINE NEGATIVE (NEGATIVE); LEUKOCYTE ESTERASE,URINE NEGATIVE (NEGATIVE); NITRITE,URINE NEGATIVE (NEGATIVE); OCCULT BLOOD,URINE NEGATIVE (NEGATIVE); PH,URINE 6.5 (5.0-8.0); PROTEIN,URINE NEGATIVE (NEGATIVE); UROBILINOGEN,URINE 0.2 EU/dL (<2.0)
[2023-04-11 10:37] LABS: A/G RATIO 1.5 (0.9-1.6); ALBUMIN 4.5 g/dL (3.4-5.0); BILIRUBIN TOTAL 0.3 mg/dL (0.2-1.0); CALCIUM 8.6 mg/dL (8.5-10.1); CARBON DIOXIDE,CO2 26.3 mmol/L (21.0-32.0); EST CRCL DRUG DOSING (CG) 76.08 mL/min; POTASSIUM,K 3.2 mmol/L (3.5-5.1); PROTEIN TOTAL,TP 7.6 g/dL (6.4-8.2)
[2023-04-11] MEDS ORDERED: Iopamidol 755 MG/ML 500 ML Multipack Bottle IVPUSH STA (11:24)
[2023-04-11] MEDS ORDERED: Ondansetron 4 MG/2 ML SDV IVPUSH STA (11:40)
== END 2023-04-11 12:47 | disposition home or self-care (01) ==
LOC: MW.ED 09:47
DX: K59.00 Constipation, unspecified (principal); Z86.16 Personal history of COVID-19
CPT/HCPCS: 36415; 74177; 80053; 81003; 81025; 83690; 85025; 96361; 96374; 96375; 99284; J1885; J2405; J3490; J7030; Q9967

== ENCOUNTER 2024-07-14 15:01 | Emergency (ER) | payer BC ==
[2024-07-14] MEDS ORDERED: Sodium Chloride 0.9% 2.5 ML Syringe FLUSH PRN (16:16)
[2024-07-14] MEDS ORDERED: Sodium Chloride 0.9% 10 ML Syringe FLUSH PRN (16:16)
[2024-07-14 16:17] LABS: APPEARANCE,URINE CLEAR; BILIRUBIN,URINE NEGATIVE (NEGATIVE); COLOR,URINE YELLOW; GLUCOSE,URINE NEGATIVE (NEGATIVE); KETONES,URINE >=80 mg/dL (NEGATIVE); LEUKOCYTE ESTERASE,URINE NEGATIVE (NEGATIVE); NITRITE,URINE NEGATIVE (NEGATIVE); OCCULT BLOOD,URINE NEGATIVE (NEGATIVE); PH,URINE 7.5 (5.0-8.0); PROTEIN,URINE NEGATIVE (NEGATIVE); UROBILINOGEN,URINE 0.2 EU/dL (<2.0)
[2024-07-14] MEDS: Sodium Chloride 0.9% 1,000 ML IV ONE (16:25)
[2024-07-14] MEDS: Ondansetron 4 MG/2 ML SDV IVPUSH ONE (16:26)
[2024-07-14 16:29] LABS: BASOPHILS ABSOLUTE AUTO 0.03 K/uL (0.00-0.20); BASOPHILS PERCENT AUTO 0.6 % (0.0-1.0); EOSINOPHILS ABSOLUTE AUTO 0.04 K/uL (0.00-0.45); EOSINOPHILS PERCENT AUTO 0.7 % (0.0-6.0); HEMATOCRIT 40.5 % (37.0-47.0); HEMOGLOBIN 14.3 g/dL (12.0-16.0); IMMATURE GRAN ABSOLUTE AUTO 0.02 K/uL (0.00-0.05); IMMATURE GRAN PERCENT AUTO 0.4 % (0.0-0.4); LYMPHOCYTES ABSOLUTE AUTO 1.28 K/uL (1.00-4.80); LYMPHOCYTES PERCENT AUTO 23.7 % (24.0-44.0); MEAN CORPUSCULAR HEMOGLOBIN 30.6 pg (28.0-32.0); MEAN CORPUSCULAR HGB CONC 35.3 g/dL (32.0-36.0); MEAN CORPUSCULAR VOLUME 86.7 fL (83.0-99.0); MEAN PLATELET VOLUME 10.9 fL (9.4-12.3); MONOCYTES ABSOLUTE AUTO 0.48 K/uL (0.00-0.80); MONOCYTES PERCENT AUTO 8.9 % (0.0-8.0); NEUTROPHILS ABSOLUTE AUTO 3.54 K/uL (1.80-7.70); NEUTROPHILS PERCENT AUTO 65.7 % (41.0-71.0); PLATELET COUNT,PLT 239 K/uL (150-400); RED BLOOD CELL COUNT 4.67 M/uL (4.10-5.30); WHITE BLOOD CELL COUNT,WBC 5.39 K/uL (3.9-11.3)
[2024-07-14 17:46] LABS: A/G RATIO 1.6 (0.9-1.6); ALBUMIN 4.6 g/dL (3.4-5.0); BILIRUBIN TOTAL 0.8 mg/dL (0.2-1.0); CALCIUM 9.5 mg/dL (8.5-10.1); CARBON DIOXIDE,CO2 26.8 mmol/L (21.0-32.0); CREATININE 0.9 mg/dL (0.6-1.0); EST CRCL DRUG DOSING (CG) 81.81 mL/min; POTASSIUM,K 3.8 mmol/L (3.5-5.1); PROTEIN TOTAL,TP 7.5 g/dL (6.4-8.2)
[2024-07-14] MEDS: Sodium Chloride 0.9% 500 ML IV SCH (18:05)
[2024-07-14] MEDS: Ketorolac 30 MG/ML SDV IVPUSH ONE (18:05)
[2024-07-14] MEDS: Prochlorperazine 10 MG/2 ML SDV IVPUSH ONE (18:05)
== END 2024-07-14 18:34 | disposition home or self-care (01) ==
LOC: MW.ED 15:01
DX: R11.10 Vomiting, unspecified (principal); Z79.899 Other long term (current) drug therapy; Z75.8 Other problems related to medical facilities and other health care
CPT/HCPCS: 36415; 80053; 81003; 81025; 83690; 83735; 85025; 96361; 96374; 96375; 99284; J0780; J1885; J2405; J7030; J7040